=== PATIENT | female | born 1980 | race African-American/Black ===

== ENCOUNTER 2019-01-29 17:54 | Emergency (ER) | payer MEDICAID ==
[~2019-01-29] VITALS: Ht 162.6 cm; Wt 67.0 kg
[2019-01-29] MEDS ORDERED: ACETAMINOPHEN 500MG TABLET PO ONE (21:45)
[2019-01-29] MEDS ORDERED: METHOCARBAMOL 500MG TABLET PO ONE (23:45)
[2019-01-30 00:10] VITALS: BP 115/71
== END 2019-01-30 07:08 | disposition home or self-care (01) ==
LOC: ER 17:54
DX: S16.1XXA Strain of muscle, fascia and tendon at neck level, initial encounter (principal); S70.01XA Contusion of right hip, initial encounter; R07.89 Other chest pain; M25.551 Pain in right hip; M25.512 Pain in left shoulder; R56.9 Unspecified convulsions; V43.52XA Car driver injured in collision with other type car in traffic accident, initial encounter; Y93.89 Activity, other specified; Y92.410 Unspecified street and highway as the place of occurrence of the external cause; Z88.6 Allergy status to analgesic agent
CPT/HCPCS: 71046; 72040; 73030; 73502; 93005; 99283; A4565

== ENCOUNTER 2021-04-01 15:11 | Emergency (ER) | payer MEDICAID ==
[~2021-04-01] VITALS: Ht 167.6 cm; Wt 72.0 kg
[2021-04-01] MEDS ORDERED: CYCLOBENZAPRINE 10MG TABLET PO ONE (18:45)
[2021-04-01] MEDS ORDERED: ACETAMINOPHEN 325MG TABLET PO ONE (18:45)
[2021-04-01] MEDS ORDERED: CYCL5TAB MT (20:11)
[2021-04-01 21:11] VITALS: BP 160/85
== END 2021-04-01 21:14 | disposition home or self-care (01) ==
LOC: ER 15:11
DX: S46.812A Strain of other muscles, fascia and tendons at shoulder and upper arm level, left arm, initial encounter (principal); V49.49XA Driver injured in collision with other motor vehicles in traffic accident, initial encounter; Y93.89 Activity, other specified; Y92.89 Other specified places as the place of occurrence of the external cause; Y99.8 Other external cause status
CPT/HCPCS: 71045; 72170; 73030; 73100; 73120; 99284

== ENCOUNTER 2021-05-25 04:50 | Emergency (ER) | payer MEDICAID ==
[~2021-05-25] VITALS: Ht 162.6 cm; Wt 75.8 kg
[~2021-05-25 04:50] MED LIST: CYCL5TAB MT
[2021-05-25 05:10] VITALS: BP 129/84
[2021-05-25] MEDS ORDERED: LIDOCAINE 5% PATCH TOP SCH (07:45)
[2021-05-25] MEDS ORDERED: ACETAMINOPHEN 325MG TABLET PO ONE (07:45)
== END 2021-05-25 19:35 | disposition home or self-care (01) ==
LOC: ER 04:58
DX: M25.512 Pain in left shoulder (principal); Z88.6 Allergy status to analgesic agent
CPT/HCPCS: 73030; 81025; 99283

== ENCOUNTER 2024-03-04 14:39 | Emergency (ER) | payer MEDICAID, OTHER ==
[~2024-03-04] VITALS: Ht 162.6 cm; Wt 63.5 kg
[2024-03-04 15:02] VITALS: TEMP 98.1; O2SAT 100
[2024-03-04 15:42] LABS: CARBON DIOXIDE 28 mEq/L (21-32); CHLORIDE 107 mEq/L (98-107); SODIUM 138 mEq/L (136-145)
[2024-03-04 15:43] LABS: CALCIUM 9.2 mg/dL (8.7-10.4)
[2024-03-04 15:44] LABS: BASOPHILS % 0.4 % (0.0-2.0); EOSINOPHILS % 0.7 % (0.0-5.0); HEMATOCRIT. 37.9 % (36.0-48.0); HEMOGLOBIN. 12.9 g/dL (12.0-16.0); LYMPHOCYTES % 23.1 % (20.0-50.0); MEAN CORPUSCULAR HEMOGLOBIN 32.6 pg (28.0-32.0); MEAN CORPUSCULAR HGB CONC 34.1 g/dL (31.0-37.0); MEAN CORPUSCULAR VOLUME 95.5 fL (81.0-99.0); MEAN PLATELET VOLUME 7.9 fl (7.4-10.4); MONOCYTES % 8.8 % (2.0-8.0); PLATELET 280 x1000/uL (130-400); RED BLOOD CELL COUNT 3.97 mill/uL (4.2-5.4); RED CELL DISTRIBUTION WIDTH 13.3 % (11.6-14.6)
[2024-03-04 15:47] LABS: CREATININE 0.8 mg/dL (0.6-1.0)
[2024-03-04 15:48] LABS: GLUCOSE 83 mg/dL (70-105); UREA NITROGEN BLOOD 16 mg/dL (9-23)
[2024-03-04 15:49] LABS: ALANINE AMINOTRANSFERASE 15 IU/L (10-49); ALBUMIN 4.2 g/dL (3.2-4.8); ASPARTATE AMINOTRANSFERASE 16 IU/L (<34)
[2024-03-04 15:50] LABS: BILIRUBIN TOTAL 0.3 mg/dL (0.1-1.0); PROTEIN TOTAL 7.1 g/dL (6.0-8.3)
[2024-03-04 15:56] LABS: BILIRUBIN DIRECT < 0.1 mg/dL (<=3.0)
[2024-03-04] MEDS ORDERED: DOXY100T28 MT (19:43)
[2024-03-04 19:53] LABS: CLARITY URINE CLEAR (CLEAR); COLOR URINE YELLOW (YELLOW); GLUCOSE URINE NEGATIVE (NEGATIVE); KETONES URINE NEGATIVE (NEGATIVE); LEUKOCYTE ESTERASE URINE NEGATIVE (NEGATIVE); NITRITE URINE NEGATIVE (NEGATIVE); OCCULT BLOOD URINE NEGATIVE (NEGATIVE); PH URINE 5.5 (4.5-8.0); PROTEIN URINE NEGATIVE (NEGATIVE); UROBILINOGEN URINE 0.2 E.U./dL (0.2-1.0)
[2024-03-04 20:01] VITALS: BP 146/84; PULSE 73; RESP 16; O2SAT 100
[2024-03-04] MEDS: CEFTRIAXONE SODIUM 500MG VIAL IM ONE (20:41)
[2024-03-04] MEDS: LIDOCAINE HCL/PF 1% 10 MG/ML 5ML VIAL INFIL ONE (20:41)
[2024-03-07 04:09] LABS: CHLAMYDIA TRACHOMATIS NAA Negative (Negative); NEISSERIA GONORRHOEAE NAA Negative (Negative)
== END 2024-03-04 20:01 | disposition home or self-care (01) ==
LOC: ER 14:39
DX: N76.0 Acute vaginitis (principal); N61.1 Abscess of the breast and nipple; Z98.51 Tubal ligation status; Z88.6 Allergy status to analgesic agent
CPT/HCPCS: 87491; 87591; 80076; 80048; 81003; 81025; 85025; 86850; 86900; 86901; 36415; 93005; 96372; 99284; J0696; J3490; Z7610

== ENCOUNTER 2024-08-03 14:37 | Emergency (ER) | payer MEDICAID, OTHER ==
[~2024-08-03] VITALS: Ht 162.6 cm; Wt 63.5 kg
[~2024-08-03 14:37] MED LIST changes: -CYCL5TAB MT; +CYCL5TAB3 MT; +DOXY100T28 MT
[2024-08-03 15:07] VITALS: O2SAT 99
[2024-08-03 15:13] VITALS: BP 139/93; PULSE 95; RESP 18; TEMP 36.8; O2SAT 100
[2024-08-03] MEDS: CEFTRIAXONE SODIUM 500MG VIAL IM ONE (17:15)
[2024-08-03] MEDS ORDERED: DOXY100C5 MT (18:32)
[2024-08-03 19:19] LABS: CLARITY URINE CLOUDY (CLEAR); COLOR URINE YELLOW (YELLOW); GLUCOSE URINE NEGATIVE (NEGATIVE); KETONES URINE TRACE (NEGATIVE); LEUKOCYTE ESTERASE URINE TRACE (NEGATIVE); NITRITE URINE NEGATIVE (NEGATIVE); OCCULT BLOOD URINE NEGATIVE (NEGATIVE); PH URINE >=9.0 (4.5-8.0); PROTEIN URINE 1+ (NEGATIVE); SPECIFIC GRAVITY URINE 1.028 (1.005-1.030)
[2024-08-03 21:49] LABS: BACTERIA URINE 2+; RBC URINE 0-2 /hpf (0-2); SQUAMOUS EPITHELIAL CELL URINE 2+ /lpf (RARE/1+); WBC URINE 0-2 /hpf (0-2)
== END 2024-08-03 18:51 | disposition home or self-care (01) ==
LOC: ER 14:37
DX: Z11.3 Encounter for screening for infections with a predominantly sexual mode of transmission (principal); Z79.899 Other long term (current) drug therapy; Z98.890 Other specified postprocedural states; Z88.6 Allergy status to analgesic agent
CPT/HCPCS: 99283; 86592; 87491; 87591; 81003; 36415; 96372; J0696

== ENCOUNTER 2025-02-13 07:15 | Emergency (ER) | payer OTHER ==
[~2025-02-13] VITALS: Ht 162.6 cm; Wt 70.0 kg
[~2025-02-13 07:15] MED LIST changes: +DOXY100C5 MT
[2025-02-13 07:33] VITALS: BP 132/72; PULSE 81; RESP 14; TEMP 37; O2SAT 100
== END 2025-02-13 08:05 | disposition home or self-care (01) ==
LOC: ER 07:15
DX: R05.9 Cough, unspecified (principal); F17.200 Nicotine dependence, unspecified, uncomplicated; Z88.6 Allergy status to analgesic agent; Z98.890 Other specified postprocedural states
CPT/HCPCS: 99282